=== PATIENT | male | born 1990 | race Caucasian/White ===

== ENCOUNTER 2019-01-04 01:34 | Emergency (ER) | payer SELFPAY ==
[~2019-01-04] VITALS: Ht 86.4 cm; Wt 77.3 kg
[2019-01-04 01:50] VITALS: Ht 86.4 cm; Wt 77.3 kg
[2019-01-04] MEDS ORDERED: IOHEXOL 300MG/ML 150 ML BTL ONE (04:45)
[2019-01-04] MEDS ORDERED: SOD CHLORIDE 0.9% 100 ML ONE (04:45)
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
[2019-01-04] MEDS ORDERED: NALO4SPR NS (07:24)
[2019-01-04] MEDS ORDERED: OXYC5CAP17 PO (07:24)
[2019-01-04] MEDS ORDERED: IBUP-1542 PO (07:24)
[2019-01-04 07:46] VITALS: BP 120/73; PULSE 102; RESP 17
== END 2019-01-04 08:16 | disposition home or self-care (01) ==
LOC: E/R 01:34
DX: S32.020A Wedge compression fracture of second lumbar vertebra, initial encounter for closed fracture (principal); D72.829 Elevated white blood cell count, unspecified; M79.10 Myalgia, unspecified site; V49.69XA Unspecified car occupant injured in collision with other motor vehicles in traffic accident, initial encounter
CPT/HCPCS: 71260; 73130; 74177; 80048; 80076; 85025; 85610; 85730; 99285; Q9967